=== PATIENT | male | born 1950 | race African-American/Black ===

== ENCOUNTER 2016-08-28 13:28 | Emergency (ER) | payer MEDICARE, OTHER ==
[2016-08-28] MEDS ORDERED: SODIUM CHLORIDE 0.9% 1,000 ML IV STA ×2 (13:57)
[2016-08-28 14:33] LABS: Aty Lym Flag Slight; CH 30.6; CHCM 32.2; HCT 46.6 % (39.0-53.0); HDW 2.29; HGB 14.7 gm/dL (13.0-17.5); MCH 30.1 pg (25.0-35.0); MCHC 31.5 g/dL (31.0-37.0); MCV 95.5 fL (80.0-100.0); Mean Platelet Volume 7.1; RBC 4.87 m/uL (4.30-5.90); RDW 13.7 % (11.5-15.5); WBC (Perox) 3.14
[2016-08-28 14:37] LABS: Partial Thromboplastin Time 26.4 sec (22.0-30.0); Prothrombin Time 10.2 sec (9.0-12.0)
[2016-08-28 14:39] LABS: Appearance,Urine Clear (Clear); Bilirubin,Urine Negative (Negative); Glucose,Urine (UA) Negative (Negative); Ketones,Urine Negative (Negative); Leukocyte Esterase,Urine Moderate (Negative); Mucus,Urine Rare /hpf; Nitrite,Urine Negative (Negative); Particle Count 2236; Protein,Urine Trace (Negative); Specific Gravity,Urine 1.022 (1.001-1.035); UA Billing (MACRO vs. MICRO) MICRO; WBC,Urine 15 /hpf (0-5)
[2016-08-28 14:42] LABS: Add Differential Manual Differential
[2016-08-28 14:43] LABS: ALT 37 U/L (21-72); AST 45 U/L (17-59); Alkaline Phosphatase 115 U/L (38-126); Anion Gap 9 mmol/L; Blood Urea Nitrogen 13 mg/dL (9-20); Calcium 9.1 mg/dL (8.4-10.2); Carbon Dioxide 28 mmol/L (22-30); Chloride 104 mmol/L (98-107); Glucose 88 mg/dL (74-99); Magnesium 2.2 mg/dL (1.6-2.3); Non-African American GFR(MDRD) >60 (>60 ml/min/1.73 sqM); Phosphorous 4.1 mg/dL (2.5-4.5); Potassium 4.7 mmol/L (3.5-5.1); Sodium 141 mmol/L (137-145); Total Bilirubin 0.6 mg/dL (0.2-1.3); Total Protein 7.6 g/dL (6.3-8.2)
[2016-08-28 14:49] LABS: Creatine Kinase 221 U/L (55-170)
[2016-08-28 14:51] LABS: Nucleated Red Blood Cells 0 /100 WBC (0-0); Total Cells Counted 100
[2016-08-28 14:52] LABS: Manual Review Performed
[2016-08-28 15:03] LABS: Creatine Kinase MB 1.7 ng/mL (0.0-2.4); Troponin I <0.012 ng/mL (0.000-0.034)
--- NOTE | 2016-08-28 15:18 | ED ---
General Adult HPI - General Chief complaint: Recheck/Abnormal Lab/Rx Stated complaint: Sent by PCP for Kidney Failure Time Seen by Provider: 08/28/16 13:57 Source: patient, RN notes reviewed, old records reviewed Mode of arrival: ambulatory Limitations: no limitations - History of Present Illness Initial comments: This is a 66-year-old male here for evaluation of abnormal lab tests. Patient has history of high blood pressure. Patient had outpatient lab test done at his family doctor's and was told to come in for evaluation regarding abnormal outpatient lab test, he was told that his kidneys may be failing. Patient self has no complaints again denies any weakness no nausea no vomiting no diarrhea no fevers. No new medications, no change in medications. Again patient at this time is without complaint - Related Data Home Medications Medication Instructions Recorded Confirmed ARIPiprazole [Abilify] 30 mg PO HS 08/28/16 08/28/16 Amitriptyline HCl [Elavil] 100 mg PO HS 08/28/16 08/28/16 Carvedilol [Coreg] 3.125 mg PO BID 08/28/16 08/28/16 Gabapentin [Neurontin] 300 mg PO TID 08/28/16 08/28/16 Lisinopril [Zestril] 20 mg PO DAILY 08/28/16 08/28/16 Meloxicam [Mobic] 15 mg PO HS 08/28/16 08/28/16 buPROPion XL [Wellbutrin Xl] 300 mg PO DAILY 08/28/16 08/28/16 traZODone HCL [Desyrel] 100 mg PO HS 08/28/16 08/28/16 Allergies Allergy/AdvReac Type Severity Reaction Status Date / Time Penicillins Allergy Rash/Hives Verified 08/28/16 14:22 Review of Systems ROS Statement: Those systems with pertinent positive or pertinent negative responses have been documented in the HPI. ROS Other: All systems not noted in ROS Statement are negative. Past Medical History Past Medical History: Hypertension History of Any Multi-Drug Resistant Organisms: None Reported Past Surgical History: Orthopedic Surgery Past Psychological History: Bipolar, Depression Smoking Status: Current every day smoker Past Alcohol Use History: Occasional Past Drug Use History: None Reported General Exam Limitations: no limitations General appearance: alert, in no apparent distress Head exam: Present: atraumatic, normocephalic, normal inspection Eye exam: Present: normal appearance, PERRL, EOMI. Absent: scleral icterus, conjunctival injection, periorbital swelling ENT exam: Present: normal exam, mucous membranes moist Neck exam: Present: normal inspection. Absent: tenderness, meningismus, lymphadenopathy Respiratory exam: Present: normal lung sounds bilaterally. Absent: respiratory distress, wheezes, rales, rhonchi, stridor Cardiovascular Exam: Present: regular rate, normal rhythm, normal heart sounds. Absent: systolic murmur, diastolic murmur, rubs, gallop, clicks GI/Abdominal exam: Present: soft, normal bowel sounds. Absent: distended, tenderness, guarding, rebound, rigid Extremities exam: Present: normal inspection, full ROM, normal capillary refill. Absent: tenderness, pedal edema, joint swelling, calf tenderness Back exam: Present: normal inspection Neurological exam: Present: alert, oriented X3, CN II-XII intact Psychiatric exam: Present: normal affect, normal mood Skin exam: Present: warm, dry, intact, normal color. Absent: rash Course Vital Signs 08/28/16 13:39 Temperature 98.4 F Pulse Rate 84 Respiratory 20 Rate Blood Pressure 129/83 O2 Sat by Pulse 97 Oximetry - Reevaluation(s) Reevaluation #1: 08/28/16 15:17 Patient has no medical complaints Medical Decision Making - Medical Decision Making 66 male to the ER for evaluation regarding abnormal lab tests, lab tests today are grossly normal, renal function is normal patient is asymptomatic and will be discharged home - Lab Data Result diagrams: 08/28/16 14:16 08/28/16 14:16 Lab Results 08/28/16 08/28/16 08/28/16 Range/Units 14:16 14:16 14:16 WBC 3.0 L (3.8-10.6) k/uL RBC 4.87 (4.30-5.90) m/uL Hgb 14.7 (13.0-17.5) gm/dL Hct 46.6 (39.0-53.0) % MCV 95.5 (80.0-100.0) fL MCH 30.1 (25.0-35.0) pg MCHC 31.5 (31.0-37.0) g/dL RDW 13.7 (11.5-15.5) % Plt Count 193 (150-450) k/uL Neutrophils % [employer] Neutrophils % (Manual) 44.0 % Lymphocytes % [employer] Lymphocytes % (Manual) 36.0 % Monocytes % [employer] Monocytes % (Manual) 20.0 % Eosinophils % [employer] Basophils % [employer] Neutrophils # [employer] Neutrophils # (Manual) 1.3 (1.3-7.7) k/uL Lymphocytes # [employer] Lymphocytes # (Manual) 1.1 (1.0-4.8) k/uL Monocytes # [employer] Monocytes # (Manual) 0.6 (0-1.0) k/uL Eosinophils # [employer] Basophils # [employer] Nucleated RBCs 0 (0-0) /100 WBC Differential Comment P Manual Slide Review Performed PT (9.0-12.0) sec INR (<1.1) APTT (22.0-30.0) sec Sodium 141 (137-145) mmol/L Potassium 4.7 (3.5-5.1) mmol/L Chloride 104 (98-107) mmol/L Carbon Dioxide 28 (22-30) mmol/L Anion Gap 9 mmol/L BUN 13 (9-20) mg/dL Creatinine 0.99 (0.66-1.25) mg/dL Est GFR (MDRD) Af Amer >60 (>60 ml/min/1.73 sqM) Est GFR (MDRD) Non-Af >60 (>60 ml/min/1.73 sqM) Glucose 88 (74-99) mg/dL Calcium 9.1 (8.4-10.2) mg/dL Phosphorus 4.1 (2.5-4.5) mg/dL Magnesium 2.2 (1.6-2.3) mg/dL Total Bilirubin 0.6 (0.2-1.3) mg/dL AST 45 (17-59) U/L ALT 37 (21-72) U/L Alkaline Phosphatase 115 (38-126) U/L Total Creatine Kinase 221 H (55-170) U/L CK-MB (CK-2) 1.7 (0.0-2.4) ng/mL CK-MB (CK-2) Rel Index 0.8 Troponin I <0.012 (0.000-0.034) ng/mL Total Protein 7.6 (6.3-8.2) g/dL Albumin 4.3 (3.5-5.0) g/dL Urine Color Urine Appearance (Clear) Urine pH (5.0-8.0) Ur Specific [place] (1.001-1.035) Urine Protein (Negative) Urine Glucose (UA) (Negative) Urine Ketones (Negative) Urine Blood (Negative) Urine Nitrite (Negative) Urine Bilirubin (Negative) Urine Urobilinogen (<2.0) mg/dL Ur Leukocyte Esterase (Negative) Urine WBC (0-5) /hpf Urine Mucus (None) /hpf 08/28/16 08/28/16 Range/Units 14:16 14:16 WBC (3.8-10.6) k/uL RBC (4.30-5.90) m/uL Hgb (13.0-17.5) gm/dL Hct (39.0-53.0) % MCV (80.0-100.0) fL MCH (25.0-35.0) pg MCHC (31.0-37.0) g/dL RDW (11.5-15.5) % Plt Count (150-450) k/uL Neutrophils % Neutrophils % (Manual) % Lymphocytes % Lymphocytes % (Manual) % Monocytes % Monocytes % (Manual) % Eosinophils % Basophils % Neutrophils # Neutrophils # (Manual) (1.3-7.7) k/uL Lymphocytes # Lymphocytes # (Manual) (1.0-4.8) k/uL Monocytes # Monocytes # (Manual) (0-1.0) k/uL Eosinophils # Basophils # Nucleated RBCs (0-0) /100 WBC Differential Comment Manual Slide Review PT 10.2 (9.0-12.0) sec INR 1.0 (<1.1) APTT 26.4 (22.0-30.0) sec Sodium (137-145) mmol/L Potassium (3.5-5.1) mmol/L Chloride (98-107) mmol/L Carbon Dioxide (22-30) mmol/L Anion Gap mmol/L BUN (9-20) mg/dL Creatinine (0.66-1.25) mg/dL Est GFR (MDRD) Af Amer (>60 ml/min/1.73 sqM) Est GFR (MDRD) Non-Af (>60 ml/min/1.73 sqM) Glucose (74-99) mg/dL Calcium (8.4-10.2) mg/dL Phosphorus (2.5-4.5) mg/dL Magnesium (1.6-2.3) mg/dL Total Bilirubin (0.2-1.3) mg/dL AST (17-59) U/L ALT (21-72) U/L Alkaline Phosphatase (38-126) U/L Total Creatine Kinase (55-170) U/L CK-MB (CK-2) (0.0-2.4) ng/mL CK-MB (CK-2) Rel Index Troponin I (0.000-0.034) ng/mL Total Protein (6.3-8.2) g/dL Albumin (3.5-5.0) g/dL Urine Color Yellow Urine Appearance Clear (Clear) Urine pH 6.0 (5.0-8.0) Ur Specific [place] 1.022 (1.001-1.035) Urine Protein Trace H (Negative) Urine Glucose (UA) Negative (Negative) Urine Ketones Negative (Negative) Urine Blood Negative (Negative) Urine Nitrite Negative (Negative) Urine Bilirubin Negative (Negative) Urine Urobilinogen 6.0 (<2.0) mg/dL Ur Leukocyte Esterase Moderate H (Negative) Urine WBC 15 H (0-5) /hpf Urine Mucus Rare H (None) /hpf Disposition Clinical Impression: Normal exam Narrative: Normal Lab Values Disposition: HOME SELF-CARE Condition: Good Referrals: Angy Roque MD [Primary Care Provider] - 1-2 days
[2016-08-28 15:29] VITALS: BP 119/74; PULSE 89; RESP 16; TEMP 97.3
[2016-08-28 18:13] LABS: Hemoglobin A1C 5.6 % (4.2-6.1)
== END 2016-08-28 15:33 | disposition home or self-care (01) ==
LOC: EC 13:28
DX: Z04.8 Encounter for examination and observation for other specified reasons (principal); I10 Essential (primary) hypertension; F31.9 Bipolar disorder, unspecified; F17.200 Nicotine dependence, unspecified, uncomplicated; Z79.899 Other long term (current) drug therapy; Z88.0 Allergy status to penicillin
CPT/HCPCS: 36415; 80053; 81001; 82550; 82553; 82607; 83036; 83735; 84100; 84484; 85025; 85610; 85730; 96360; 99283

== ENCOUNTER → 2016-09-07 | Outpatient (CLI) | payer MEDICARE, OTHER ==
--- NOTE | 2016-09-07 12:06 | CT ---
EXAMINATION TYPE: CT chest wo con DATE OF EXAM: 09/07/2016 11:56 AM COMPARISON: NONE HISTORY: Abn kidney function. Abn CXR CT DLP: 590 mGycm Automated exposure control for dose reduction was used. FINDINGS: There are emphysematous changes throughout the lungs. There is a 5.1 mm, noncalcified pulmonary nodul e along the major fissure on the right best seen on image 51. There is a 5.4 mm nodule in the posteri or segment of the right upper lobe, best seen on image 20. There is a 5.8 mm calcified granuloma in t he lateral aspect of the left lung seen best on image 55. There is an 8.2 mm noncalcified nodule in t he lateral basal segment of the left lower lobe, best seen on image 61. No other definite parenchymal nodules are seen. There is no significant axillary, mediastinal or hilar adenopathy. There are some calcified lymph nod es present in the left hilum. There is no pleural or pericardial fluid. The heart is normal in size. The aorta is normal in size. Within the abdomen, there is evidence of old granulomatous disease of the spleen. No other acute abno rmality is seen. No bony destructive lesion is seen. IMPRESSION: 1. MULTIPLE PULMONARY NODULES. AT LEAST ONE OF THESE REPRESENTS A GRANULOMA. SHORT-TERM THREE-MONTH F OLLOW-UP WOULD BE SUGGESTED. 2. EVIDENCE OF OLD GRANULOMATOUS DISEASE IN THE SPLEEN. 3. EMPHYSEMATOUS CHANGE.
[2016-09-07 12:07] LABS: Glucose 92 mg/dL (74-99)
--- NOTE | 2016-09-07 12:17 | US ---
EXAMINATION TYPE: US kidneys/renal and bladder DATE OF EXAM: 09/07/2016 11:55 AM COMPARISON: NONE CLINICAL HISTORY: R94.4 Abn Kidney Function,R93.8 Abn Chest Xray. Back pain, abnormal kidney function EXAM MEASUREMENTS: Right Kidney: 9.6 x 6.7 x 5.7 cm Left Kidney: 11.2 x 5.3 x 4.3 cm Technical limitations due to large amount of overlying bowel content Right Kidney: no evidence of hydronephrosis or mass as visualized Left Kidney: no evidence of hydronephrosis or mass as visualized Bladder: wnl Bilateral Jets seen: no IMPRESSION: Limited exam technically demonstrates no obvious hydronephrosis or nephrolithiasis.
[2016-09-07 12:46] LABS: Hemoglobin A1C 5.7 % (4.2-6.1)
[2016-09-07 12:56] LABS: Vitamin B12 225 pg/mL (239-931)
== END | disposition home or self-care (01) ==
LOC: RADUSMAIN 11:16
PROVIDERS: ATTEND Family Medicine
DX: R91.8 Other nonspecific abnormal finding of lung field (principal); R94.4 Abnormal results of kidney function studies; M54.16 Radiculopathy, lumbar region; G62.9 Polyneuropathy, unspecified
CPT/HCPCS: 71250; 76770; 82607; 82947; 83036

== ENCOUNTER → 2016-12-20 | Outpatient (CLI) | payer MEDICARE, OTHER ==
[2016-12-20 11:22] LABS: Glucose 99 mg/dL (74-99)
[2016-12-20 12:13] LABS: Vitamin B12 202 pg/mL (239-931)
[2016-12-20 12:59] LABS: Hemoglobin A1C 5.7 % (4.2-6.1)
== END | disposition home or self-care (01) ==
LOC: LABWHC1 08:51
PROVIDERS: ATTEND Psychiatry & Neurology Neurology
DX: G62.9 Polyneuropathy, unspecified (principal); M54.16 Radiculopathy, lumbar region
CPT/HCPCS: 36415; 82607; 82947; 83036

== ENCOUNTER → 2017-01-02 | Outpatient (CLI) | payer MEDICARE, OTHER ==
--- NOTE | 2017-01-02 12:55 | MR ---
EXAMINATION TYPE: MR lumbar spine wo con DATE OF EXAM: 01/02/2017 COMPARISON: NONE HISTORY: Lumbago w/sciatica rt TECHNIQUE: Multiplanar, multisequence images of the lumbar spine were acquired. L1-L2: Normal disc appearance without desiccation. No herniation, protrusion or disc bulging. No ca nal stenosis is present. Foramina are patent bilaterally. L2-L3: Normal disc appearance without desiccation. No herniation, protrusion or disc bulging. No ca nal stenosis is present. There is some facet arthropathy. Foramina are patent bilaterally. L3-L4: Circumferential posterior disc bulge causes mild anterior mass effect on the thecal sac, mild central stenosis. Differential extension of endplate disc complex results in some mild bilateral fora carrie encroachment. There is facet arthropathy with hypertrophy of ligamentum flavum. L4-L5: Facet arthropathy changes present. Circumferential extension of endplate disc complex encroach es on the neural foramina and causes mild anterior mass effect on the thecal sac. There is mild centr al stenosis. L5-S1: Circumferential extension of endplate disc complex results in bilateral foraminal encroachment , there is contact the anterior thecal sac and possibly S1 nerve roots. Facet arthropathy with hypert rophy of ligamentum flavum causes some minimal mass effect posterior laterally on the thecal sac. Lumbar segments are intact. No paraspinal masses are identified. Conus medullaris has a normal appe arance. Loss of disc height and signal present especially at L4-5 and L5-S1, vacuum phenomenon presen t at L4-5, L5-S1. Endplate discogenic marrow signal changes are also present. There is associated spo ndylosis. Schmorl's node present superior endplate L5, inferior endplate of L4. Abdominal aorta measu res approximately 3 cm at the level of the hiatus. IMPRESSION: Degenerative disc disease, multilevel foraminal encroachment, facet arthropathy. Abdominal aortic ect zach.
== END | disposition home or self-care (01) ==
LOC: RADMRIMAIN 09:04
PROVIDERS: ATTEND Family Medicine
DX: M51.36 Other intervertebral disc degeneration, lumbar region (principal); M46.97 Unspecified inflammatory spondylopathy, lumbosacral region; M24.28 Disorder of ligament, vertebrae
CPT/HCPCS: 72148

== ENCOUNTER → 2017-02-01 | Outpatient (CLI) | payer MEDICARE, OTHER ==
--- NOTE | 2017-02-06 12:29 | P.ARTDOP ---
Arterial Doppler LOWER EXTREMITY ARTERIAL DOPPLER: DATE OF SERVICE: 02/01/2017 Reason for study: Bilateral leg cramps. Doppler waveforms: Multiphasic bilaterally throughout. Pulse volume recording: Normal configuration throughout. Pressure gradients: None. Ankle-brachial indices: Greater than 1 bilaterally. Toe pressures: 107 on the right, 114 on the left Impression: Normal study.
== END | disposition home or self-care (01) ==
LOC: RADUSWWP 11:34
PROVIDERS: ATTEND Family Medicine
DX: R25.2 Cramp and spasm (principal); M79.662 Pain in left lower leg; M79.661 Pain in right lower leg
CPT/HCPCS: 93923

== ENCOUNTER → 2017-02-04 | Outpatient (CLI) | payer MEDICARE, OTHER ==
[2017-01-30 15:11] VITALS: BMI 25.7
[2017-02-04 13:45] VITALS: BP 127/72; PULSE 84; RESP 16
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
== END | disposition home or self-care (01) ==
LOC: PNWHC3 13:28
PROVIDERS: ATTEND Specialist
DX: M51.36 Other intervertebral disc degeneration, lumbar region (principal); M47.816 Spondylosis without myelopathy or radiculopathy, lumbar region; M46.86 Other specified inflammatory spondylopathies, lumbar region; F17.200 Nicotine dependence, unspecified, uncomplicated; I10 Essential (primary) hypertension; K21.9 Gastro-esophageal reflux disease without esophagitis; Z79.02 Long term (current) use of antithrombotics/antiplatelets; Z79.899 Other long term (current) drug therapy; Z88.0 Allergy status to penicillin
CPT/HCPCS: 99211

== ENCOUNTER 2017-02-27 08:20 | Day surgery (SDC) | payer MEDICARE, OTHER ==
[2017-02-27] MEDS ORDERED: LACTATED RINGERS 1,000 ML IV SCH (08:30)
[2017-02-27 09:01] VITALS: RESP 16; TEMP 98
[2017-02-27] MEDS ORDERED: LIDOCAINE 1% 20 ML VIAL (10MG/ML) FOR IV START INTRADERMA ONE (09:03)
[2017-02-27] MEDS ORDERED: IV FLUID CONTINUATION 1,000 ML IV ONE (10:16)
[2017-02-27 10:33] VITALS: BP 136/80; PULSE 76
--- NOTE | 2017-02-27 10:35 | FL ---
EXAMINATION TYPE: FL guided pain mgmt statistic DATE OF EXAM: 02/27/2017 HISTORY: Pain Dr. Sorensen supervised use of michael for a lumbar megan facet block with steroids. 14 secs fluoro and 5 pap er images
--- NOTE | 2017-02-27 11:42 | P.PCN ---
Date of Procedure: 02/27/17 Surgeon: Camron Sorensen Pathology: none sent Condition: stable Disposition: PACU Description of Procedure: PREOPERATIVE DIAGNOSIS: L2-L3, L3-L4, L4-L5, and L5-S1 spondylosis without myelopathy and facet arthropathy. POSTOPERATIVE DIAGNOSIS: L2-L3, L3-L4, L4-L5, and L5-S1 spondylosis without myelopathy and facet arthropathy. PROCEDURE DESCRIPTION: Patient presents for L2-L3, L3-L4, L4-L5 diagnostic medial branch blocks under fluoroscopic guidance. The procedure is performed using fluoroscopic guidance during needle placement to assure proper position and maximize safety. ANESTHESIA: Local with 1% lidocaine; conscious sedation EBL: Minimal PROCEDURE INDICATION: Patient with lumbar facet arthropathy signs and symptoms, here for diagnostic medial branch block. Pt does not take any blood thinning medications. PROCEDURE DESCRIPTION: The patient was seen and identified in the preoperative area. Risks, benefits, complications, and alternatives were discussed with the patient (including but not limited to incomplete pain relief, bleeding, infection, nerve damage, and allergies to medications), the patient agreed to proceed with the procedure and signed the consent after all questions were answered. Patient was taken to the OR and time out was completed to verify proper patient, position, laterality of pain, and allergies. Pt was placed in the prone position and a pillow was placed under the abdomen to reduce lumbar lordosis. The lumbosacral area was prepped and draped in the usual sterile fashion. Using oblique fluoroscopy, the eye of the "Rkish dog" of right L4 vertebral body, which corresponds to the path of the medial branch originating from the level above, which is L3 in this case, was identified. Subsequently, a 22-gauge 3.5-inch spinal needle was inserted under fluoroscopic guidance toward the eye of the "Krish dog" of the right L4 vertebral body, corresponding to the junction of the superior articular process and the transverse process of the pedicle of the same level. After needle tip confirmation on lateral view and after negative aspiration for CSF and blood and without paresthesias, 1 mL of a 6 ml solution of 0.5% preservative-free bupivacaine and 40 mg Kenalog was injected. Subsequently the needle was withdrawn intact and the same procedure was repeated for the right L2, right L4, left L2, left L3, and left L4 medial branches which together with right L3 medial branch correspond to the sensory innervation of the bilateral L3-L4, L4-L5, and L5-S1 facet joints. Needle was withdrawn intact after each injection. At the end of the procedure, the skin was cleansed and bandages were applied. COMPLICATIONS: None. DISPOSITION/PLAN: The patient taken to the recovery area after the procedure in a stable condition for observation. Patient was reexamined prior to discharge and there were no issues. Patient was discharged home, accompanied by an adult, after meeting discharged criteria. Discharge instructions were give to the patient by the staff. Patient was specifically instructed not to drive today and to rest for the rest of the day. We will plan to repeat this procedure (bilateral LMBB ) in 4-6 weeks.
== END 2017-02-27 13:37 | disposition home or self-care (01) ==
LOC: ORPAIN 08:20
PROVIDERS: ATTEND Anesthesiology
DX: G89.29 Other chronic pain (principal); M47.816 Spondylosis without myelopathy or radiculopathy, lumbar region; M47.817 Spondylosis without myelopathy or radiculopathy, lumbosacral region; M46.96 Unspecified inflammatory spondylopathy, lumbar region; M46.97 Unspecified inflammatory spondylopathy, lumbosacral region; I10 Essential (primary) hypertension; M19.90 Unspecified osteoarthritis, unspecified site; F17.200 Nicotine dependence, unspecified, uncomplicated; Z79.899 Other long term (current) drug therapy; Z88.0 Allergy status to penicillin
CPT/HCPCS: 64493; 64494; 64495; 99152; J2250; J3301

== ENCOUNTER → 2017-03-05 | Outpatient (CLI) | payer MEDICARE, OTHER ==
--- NOTE | 2017-03-05 11:24 | US ---
EXAMINATION TYPE: US duplex aorta DATE OF EXAM: 03/05/2017 COMPARISON: MRI CLINICAL HISTORY: I77.811 Aortic Ectasia Abdominal. EXAM MEASUREMENTS: Abdominal Aorta: Proximal: 2.8 x 3.2 cm Mid: 1.9 x 1.8 cm Distal: 1.7 x 1.6 cm Bifurcation: right 1.5 cm left 1.4 cm Ectatic proximal aorta IMPRESSION: There is some mild ectasia. Aneurysmal dilatation is not evident. No significant fusiform prominence is present.
== END | disposition home or self-care (01) ==
LOC: RADUSWWP 08:27
PROVIDERS: ATTEND Family Medicine
DX: I77.811 Abdominal aortic ectasia (principal)
CPT/HCPCS: 93979

== ENCOUNTER 2017-04-15 06:07 | Day surgery (SDC) | payer MEDICARE, OTHER ==
[2017-04-09 15:44] VITALS: BMI 25.7
[~2017-04-15 06:07] MED LIST: LACTATED RINGERS 1,000 ML IV SCH
[2017-04-15] MEDS ORDERED: LIDOCAINE 1% 20 ML VIAL (10MG/ML) FOR IV START INTRADERMA ONE (06:30)
[2017-04-15 06:40] VITALS: RESP 16; TEMP 98.4
--- NOTE | 2017-04-15 08:02 | P.PCN ---
Date of Procedure: 04/15/17 Procedure(s) Performed: PREOPERATIVE DIAGNOSIS: 1-Lumbar Spondylosis with Facet Arthropathy without myelopathy. 2- Lumber degenerative disc disease. POSTOPERATIVE DIAGNOSIS: 1- Lumbar Spondylosis with Facet Arthropathy without myelopathy. 2- Lumber degenerative disc disease. PROCEDURES : Right Radiofrequency thermocoagulation, L3-L4, L4-L5, and L5-S1 medial branch, with fluoroscopic guidance ANESTHESIA: IV sedation with versed 2 mg and fentaneyl 100 mcg and local infiltration with lidocaine 1% 6 ml EBL: Minimal PROCEDURE INDICATION: The patient with low back pain secondary to lumbar facet arthropathy who had more than 50% relief of her pain with previous diagnostic lumbar medial branch block with bupivacaine. PROCEDURE DESCRIPTION / TECHNIQUE: The patient was seen and identified in the preoperative area. Risks, benefits, complications, including but not limited to risk of infection ,bleeding , allergic reactions to the medications and no complete pain releife , and alternatives were discussed with the patient, the patient agreed to proceed with the procedure and signed the consent. IV was started. Vital signs remained stable throughout the procedure. Patient was taken to the OR and time out was completed. The patient was placed in the prone position on the procedure table. The lumber area was prepped and draped in the usual sterile fashion. . Vital signs were closely monitored during the procedure .IV sedation was used during the procedure to decrease patients anxiety. Using AP and then oblique fluoroscopy, the ``eye of the Krish dog corresponding to the connection between the superior and transverse articular processes of right L3, L4, and L5 were identified, marked, and localized with 1 % lidocaine. Subsequently, a 18 nilwe256-bl radiofrequency cannula with a 10- mm active tip was advanced guided by fluoroscopy to each of the ``eyes of the Krish dog at right L3, L4, and L5. Each site then underwent sensory testing at 50 Hz and 0 to 1 volt and motor testing at 2.5 Hz and 0 to 3 volt with local stimulation, but no radicular symptoms down the legs. Thereafter the right L3-4, L4-5, and L5-S1 sites underwent radiofrequency thermocoagulation at 80 degrees celsius for 90 seconds after injecting 0.5 ml of PF lidocaine 1%. then After the thermocoagulation done , 1 ml of the block solution containing Kenalog 40 mg and 3 ml of marain 0.5% was injected at the right L3- 4 , L4-5 , and L5-S1, levels after negative aspiration of CSF and blood and with no paresthesias. Cannulas were retracted while injecting lidocaine 1% until the needle is out. At the end of the procedure, the skin was cleansed and bandages were applied. COMPLICATIONS: No acute complications. DISPOSITION / PLANS: The patient was placed in a supine position and transferred to the recovery area in a stable condition for observation and was discharged from the recovery room after meeting discharge criteria. Home discharge instructions given to the patient by the staff. The patient was reexamined prior to discharge. The patient will schedule a follow up in the clinic in 2-4 weeks.
[2017-04-15] MEDS ORDERED: IV FLUID CONTINUATION 1,000 ML IV ONE (08:10)
[2017-04-15 08:31] VITALS: BP 158/99; PULSE 95
--- NOTE | 2017-04-15 09:03 | FL ---
EXAMINATION TYPE: FL guided pain mgmt statistic DATE OF EXAM: 04/15/2017 COMPARISON: NONE HISTORY: Back pain TECHNIQUE: Fluoroscopy. FINDINGS/IMPRESSION: Fluoroscopic guidance was provided during procedure performed by Dr. Rascon. A total of 11 seconds of fluoroscopic time was utilized during the procedure and 3 spot images was a cquired.
== END 2017-04-15 08:59 | disposition home or self-care (01) ==
LOC: ORPAIN 06:07
PROVIDERS: ATTEND Specialist
DX: M47.816 Spondylosis without myelopathy or radiculopathy, lumbar region (principal); M46.96 Unspecified inflammatory spondylopathy, lumbar region; M51.36 Other intervertebral disc degeneration, lumbar region; I10 Essential (primary) hypertension; F31.9 Bipolar disorder, unspecified; F32.9 Major depressive disorder, single episode, unspecified; Z88.0 Allergy status to penicillin
CPT/HCPCS: 64635; 64636 ×2; J2250; J3301; J3010; 99152; 99153

== ENCOUNTER → 2017-05-29 | Outpatient (CLI) | payer MEDICARE, OTHER ==
--- NOTE | 2017-05-29 13:58 | CT ---
EXAMINATION TYPE: CT chest wo con DATE OF EXAM: 05/29/2017 COMPARISON: 09/07/2016 HISTORY: 67-year-old male complains of difficulty breathing. Known lung nodules. TECHNIQUE: Contiguous axial scanning of the chest without IV contrast. Coronal and sagittal reconstru ctions performed. CT DLP: 296 mGycm Automated exposure control for dose reduction was used. FINDINGS: Heart is normal size without pericardial effusion. Coronary vessel calcifications are present and are a marker for coronary artery disease. There is aneurysm of the upper descending thoracic aorta at 3.5 cm. The lower descending thoracic aor ta is also aneurysmal at 3.1 cm. Mild atherosclerotic arch calcifications with conventional arch vess el branching anatomy. No thoracic lymphadenopathy. Calcified left hilar lymph nodes compatible with prior granulomatous dis ease. Evaluation of the lungs shows moderate centrilobular emphysema. 5 mm pulmonary nodule peripheral right lower lobe at the midlung level, axial image 38 is unchanged. An elongated 8 mm pulmonary nodule right middle lobe axial image 43 is unchanged. 7 mm subpleural pulmonary nodule anterolateral lateral right base axial image 48 is unchanged. 5 mm subpleural pulmonary nodule lateral right base and 4 mm subpleural pulmonary nodule posterolater al right base, axial image 52 and 54 are unchanged. 6 mm left basilar pulmonary nodule axial image 59 is unchanged. 5 mm peripheral left basilar pulmonary nodule some central calcification suggesting a calcifying gran uloma and is unchanged. Some minimal scarring at the inferior lingula redemonstrated. Additional strandy scarring at the peripheral left base, axial image 47 is unchanged. A couple tiny 3 mm pulmonary nodules along the major fissure at the left midlung, axial image 42 and 43 are unchanged. 4 mm pulmonary nodule along the major fissure at the left mid lung axial image 35 is unchanged. 4 mm subpleural pulmonary nodule peripheral left mid lung axial image 33 is unchanged. No consolidation or pleural effusion. Calcified granulomas noted within the spleen. Moderate stool within the visualized upper abdomen. Bones: Some degenerative disc disease noted at T2-T3. No osseous destructive process. IMPRESSION: 1. MULTIPLE PULMONARY NODULES MEASURING UP TO 7 MM ARE UNCHANGED FOR 9 MONTHS. ADDITIONAL 15 MONTH FO LLOW-UP EXAM RECOMMENDED TO ENSURE 2 YEARS OF STABILITY. 2. COPD WITH MODERATE EMPHYSEMA AND PRIOR GRANULOMATOUS DISEASE. 3. MILD ANEURYSM OF THE DESCENDING THORACIC AORTA MEASURING UP TO 3.5 CM.
== END | disposition home or self-care (01) ==
LOC: RADCTMAIN 12:38
PROVIDERS: ATTEND Family Medicine
DX: J43.9 Emphysema, unspecified (principal); R91.8 Other nonspecific abnormal finding of lung field; J98.4 Other disorders of lung; I71.2 Thoracic aortic aneurysm, without rupture
CPT/HCPCS: 71250

== ENCOUNTER → 2017-07-11 | Outpatient (CLI) | payer MEDICARE, OTHER ==
[2017-07-11 12:30] LABS: HCT 47.9 % (39.0-53.0); HGB 15.1 gm/dL (13.0-17.5); MCH 30.7 pg (25.0-35.0); MCHC 31.6 g/dL (31.0-37.0); MCV 97.3 fL (80.0-100.0); Mean Platelet Volume 7.1; Platelet Count 218 k/uL (150-450); RBC 4.93 m/uL (4.30-5.90); RDW 14.1 % (11.5-15.5); WBC 3.7 k/uL (3.8-10.6)
[2017-07-11 12:32] LABS: Appearance,Urine Clear (Clear); Bilirubin,Urine Negative (Negative); Blood,Urine Negative (Negative); Color,Urine Yellow; Glucose,Urine (UA) 2+ (Negative); Ketones,Urine Negative (Negative); Leukocyte Esterase,Urine Negative (Negative); Nitrite,Urine Negative (Negative); PH, Urine 5.5 (5.0-8.0); Protein,Urine Trace (Negative); Specific Gravity,Urine 1.018 (1.001-1.035)
[2017-07-11 12:42] LABS: ALT 20 U/L (21-72); AST 21 U/L (17-59); Albumin 4.1 g/dL (3.5-5.0); Alkaline Phosphatase 118 U/L (38-126); Anion Gap 10 mmol/L; Blood Urea Nitrogen 8 mg/dL (9-20); Calcium 9.6 mg/dL (8.4-10.2); Carbon Dioxide 29 mmol/L (22-30); Chloride 105 mmol/L (98-107); Glucose 91 mg/dL (74-99); Magnesium 2.1 mg/dL (1.6-2.3); Phosphorus 3.2 mg/dL (2.5-4.5); Potassium 3.7 mmol/L (3.5-5.1); Sodium 144 mmol/L (137-145); Total Bilirubin 0.3 mg/dL (0.2-1.3); Total Protein 7.1 g/dL (6.3-8.2); Uric Acid 5.1 mg/dL (3.5-8.5)
[2017-07-11 12:43] LABS: Creatinine,Urine Random 239.1 mg/dL
[2017-07-11 18:27] LABS: Iron Saturation 11.78 (15.00-50.00)
[2017-07-11 18:55] LABS: Vitamin D 25 Hydroxy 15.1 ng/mL (30.0-100.0)
[2017-07-11 19:59] LABS: Parathyroid Hormone Intact 12.7 pg/mL (14.0-72.0)
== END | disposition home or self-care (01) ==
LOC: LABWHC1 12:09
PROVIDERS: ATTEND Internal Medicine
DX: N39.0 Urinary tract infection, site not specified (principal); D63.1 Anemia in chronic kidney disease; N18.9 Chronic kidney disease, unspecified; E21.3 Hyperparathyroidism, unspecified; E55.9 Vitamin D deficiency, unspecified; M10.9 Gout, unspecified; R80.9 Proteinuria, unspecified
CPT/HCPCS: 36415; 80053; 81003; 82306; 82570; 82728; 83540; 83550; 83735; 83970; 84100; 84156; 84550; 85027

== ENCOUNTER → 2017-08-21 | Outpatient (CLI) | payer MEDICARE, OTHER ==
[2017-08-21 13:27] LABS: Appearance,Urine Clear (Clear); Bilirubin,Urine Negative (Negative); Blood,Urine Negative (Negative); Color,Urine Yellow; Glucose,Urine (UA) Negative (Negative); Ketones,Urine Negative (Negative); Leukocyte Esterase,Urine Negative (Negative); Nitrite,Urine Negative (Negative); Protein,Urine Negative (Negative); Specific Gravity,Urine 1.011 (1.001-1.035); Urobilinogen,Urine <2.0 mg/dL (<2.0)
[2017-08-21 13:28] LABS: HCT 43.8 % (39.0-53.0); HGB 13.8 gm/dL (13.0-17.5); MCH 29.7 pg (25.0-35.0); MCHC 31.4 g/dL (31.0-37.0); MCV 94.4 fL (80.0-100.0); Mean Platelet Volume 7.4; Platelet Count 188 k/uL (150-450); RBC 4.64 m/uL (4.30-5.90); WBC 3.9 k/uL (3.8-10.6)
[2017-08-21 13:44] LABS: Albumin 3.8 g/dL (3.5-5.0); Calcium 9.3 mg/dL (8.4-10.2); Magnesium 2.1 mg/dL (1.6-2.3); Phosphorus 4.6 mg/dL (2.5-4.5); Potassium 4.7 mmol/L (3.5-5.1); Total Bilirubin 0.2 mg/dL (0.2-1.3); Total Protein 6.8 g/dL (6.3-8.2); Uric Acid 6.7 mg/dL (3.5-8.5)
[2017-08-21 17:56] LABS: Creatinine,Urine Random 119.7 mg/dL
[2017-08-21 19:11] LABS: Iron Saturation 13.41 (15.00-50.00)
== END | disposition home or self-care (01) ==
LOC: LABWHC1 12:57
PROVIDERS: ATTEND Internal Medicine
DX: N39.0 Urinary tract infection, site not specified (principal); D64.9 Anemia, unspecified; R80.9 Proteinuria, unspecified; E21.3 Hyperparathyroidism, unspecified; E55.9 Vitamin D deficiency, unspecified; M10.9 Gout, unspecified; G62.9 Polyneuropathy, unspecified; M18.9 Osteoarthritis of first carpometacarpal joint, unspecified
CPT/HCPCS: 36415; 80053; 81003; 82570; 82607; 82728; 83540; 83550; 83735; 83970; 84100; 84156; 84550; 85027

== ENCOUNTER → 2017-12-04 | Outpatient (CLI) | payer MEDICARE, OTHER ==
--- NOTE | 2017-12-04 14:50 | US ---
EXAMINATION TYPE: US scrotum with doppler. Grayscale and color Doppler Duplex imaging performed of t he scrotum. DATE OF EXAM: 12/04/2017 COMPARISON: NONE CLINICAL HISTORY: N50.811 Right Testicular Pain. Burning sensation in testicles per patient. EXAM MEASUREMENTS: TESTICLES: Right Testicle: 5.0 x 3.7 x 2.2 cm Left Testicle: 5.3 x 3.3 x 2.5 cm EPIDIDYMIS HEAD: Right Epididymis: 1.1 cm Left Epididymis: 1.1 cm Doppler performed to assess for testicular vascularity; good bilateral color flow and waveforms are s een. Presence of hydroceles: No Presence of varicoceles: No Intratesticular left-sided simple appearing cyst visualized 0.2 x 0.2 x 0.2 cm marked image 40. Towa rds end of exam comparison views show symmetric blood flow. IMPRESSION: No suspicious finding is seen to account for patient's symptoms.
== END | disposition home or self-care (01) ==
LOC: RADUSWWP 13:36
PROVIDERS: ATTEND Family Medicine
DX: N50.811 Right testicular pain (principal)
CPT/HCPCS: 76870; 93975

== ENCOUNTER → 2018-01-06 | Outpatient (CLI) | payer MEDICARE, OTHER ==
--- NOTE | 2018-01-06 16:53 | MR ---
EXAMINATION TYPE: MR lumbar spine wo con DATE OF EXAM: 01/06/2018 COMPARISON: 01/02/2017 HISTORY: Low back pain CONTRAST: 0 mL intravenous Gadavist. TECHNIQUE: Multiplanar, multisequence images of the lumbar spine were acquired. FINDINGS: Cord terminates at the L1 level. L5-S1: There is narrowing of disc height. Minimal disc bulge has anterior thecal sac contact. Posteri or endplate spurring from L5 is present with anterior thecal sac contact. No spinal canal stenosis is present. There is moderate left and mild right foraminal narrowing L4-L5: There is disc space narrowing. Residual disc bulge has anterior thecal sac contact. Facet hype rtrophy and ligamentum flavum laxity has posterior lateral thecal sac compression. No stenosis is pre sent. Severe left and moderate right foraminal narrowing is present. L3-L4: Minimal disc bulge is present. Facet hypertrophy and mild ligamentum flavum laxity is present. Mild bilateral foraminal narrowing is present. No spinal canal stenosis is present. L2-L3: No significant disc bulge or disc herniation. No spinal canal stenosis. No foraminal stenosi s. Facet hypertrophy is present.. L1-L2: No significant disc bulge or disc herniation. No spinal canal stenosis. No foraminal stenosi s. T12-L1: No significant disc bulge or disc herniation. No spinal canal stenosis. No foraminal stenos is. Exam appears stable from the comparison study. IMPRESSION: 1. Mild disc bulging lower lumbar spine. No stenosis is present. 2. There is severe foraminal stenosis L5-S1 with more moderate foraminal stenosis L3-4 L4-5 secondary to disc bulging and facet hypertrophy. 3. Posterior lateral thecal sac compression L4-5 secondary to facet hypertrophy and ligamentum flavum laxity. 4. Exam is essentially stable from the comparison study.
== END | disposition home or self-care (01) ==
LOC: RADMRIMAIN 10:03
PROVIDERS: ATTEND Psychiatry & Neurology Neurology
DX: M99.73 Connective tissue and disc stenosis of intervertebral foramina of lumbar region (principal); M51.26 Other intervertebral disc displacement, lumbar region; M46.96 Unspecified inflammatory spondylopathy, lumbar region
CPT/HCPCS: 72148

== ENCOUNTER → 2018-06-18 | Outpatient (CLI) | payer MEDICARE, OTHER ==
[2018-06-18 11:27] LABS: Basophils % (A) 1 %; Eosinophils # (A) 0.1 k/uL (0-0.7); Eosinophils % (A) 4 %; HCT 45.8 % (39.0-53.0); HGB 14.7 gm/dL (13.0-17.5); Lymphocytes # (A) 1.1 k/uL (1.0-4.8); Lymphocytes % (A) 36 %; MCH 31.4 pg (25.0-35.0); MCHC 32.2 g/dL (31.0-37.0); MCV 97.6 fL (80.0-100.0); Mean Platelet Volume 6.8; Monocytes # (A) 0.3 k/uL (0-1.0); Monocytes % (A) 9 %; Neutrophils # (A) 1.5 k/uL (1.3-7.7); Neutrophils % (A) 47 %; Platelet Count 199 k/uL (150-450); RBC 4.69 m/uL (4.30-5.90); RDW 13.5 % (11.5-15.5); WBC 3.1 k/uL (3.8-10.6)
--- NOTE | 2018-06-18 12:47 | CT ---
EXAMINATION TYPE: CT chest wo con DATE OF EXAM: 06/18/2018 COMPARISON: CT chest May 29, [address] September 07, 2016. HISTORY: Multiple nodules. COPD. CT DLP: 277.3 mGycm. Automated Exposure Control for Dose Reduction was Utilized. TECHNIQUE: CT scan of the thorax is performed without IV contrast. FINDINGS: LUNGS: Moderate underlying emphysematous change is redemonstrated. No pleural effusion or pneumothora x is noted. Tracheobronchial tree is patent There is stable 5 mm nodule anterior superior right lower lobe axial image 39. There is stable 9 x 5 mm elongated nodule right middle lobe axial image 42 redemonstrated. There is stable 8 x 5 mm subpleu ral anterolateral nodule right middle lobe on axial image 48. 3 mm smaller nodules periphery right lo wer lobe axial image 53 and 56 are unchanged from prior studies. No new right-sided nodules or masses are clearly seen. There is stable 7 x 4 mm lateral left basilar nodule axial image 59. There is stable calcified 5 mm n odule lateral left lower lobe axial image 53. Linear scarring anteriorly lingula near axial image 49 and centrally left lower lobe are unchanged. Subpleural 4 mm nodules left lower lobe axial images 46 and 45 are unchanged from prior studies.. There is stable 4 mm elongated nodule along the left lung f issure axial image 36. No new greater than 4 mm parenchymal nodules or masses are identified. MEDIASTINUM: Lack of IV contrast is noted to limit evaluation for mediastinal and especially hilar ad enopathy. There are no definitive greater than 1 cm noncalcified hilar or mediastinal lymph nodes. Prominent calcified left hilar lymph nodes are redemonstrated. No cardiomegaly or pericardial effusio n is seen. There is moderate to severe coronary artery calcification again seen. Mild to moderate padma cified plaque in aortic arch is redemonstrated. OTHER: Calcifications throughout the spleen are again seen. Slight S-shaped scoliotic curvature to th e spine is redemonstrated. IMPRESSION: Overall stable findings, some scattered stable bilateral nodules back through September 07 017 almost certainly postinflammatory in etiology. Evidence of old granulomatous disease. Moderate em physematous change without acute pulmonary process. No significant change from prior CTs.
[2018-06-20 13:09] LABS: Alt. alternata IgE Class CLASS 0; Alternaria alternata IgE <0.35 kU/L (<0.35); Asperg. fumagatus IgE <0.35 kU/L (<0.35); Asperg. fumagatus IgE Class CLASS 0; Birch(Com.Silvr) IgE <0.35 kU/L (<0.35); Birch(Com.Silvr) IgE Class CLASS 0; Cat Epith & Dander IgE <0.35 kU/L (<0.35); Cat Epith & Dander IgE Class CLASS 0; Clad herbarum IgE <0.35 kU/L (<0.35); Cockroach IgE 0.65 kU/L (<0.35); Cottonwood IgE <0.35 kU/L (<0.35); Dermato. farinae IgE 1.53 kU/L (<0.35); Dermato. farinae IgE Class CLASS II; Dog Dander IgE <0.35 kU/L (<0.35); Elm IgE <0.35 kU/L (<0.35); Maple (Box Elder) IgE <0.35 kU/L (<0.35); Maple (Box Elder) IgE Class CLASS 0; Mountain Cedar IgE <0.35 kU/L (<0.35); Mountain Cedar IgE Class CLASS 0; Mouse Urine IgE Class CLASS 0; Nettle IgE <0.35 kU/L (<0.35); Nettle IgE Class CLASS 0; Oak IgE <0.35 kU/L (<0.35); Penicillium notatum IgE Class CLASS 0; Rough Marshelder IgE <0.35 kU/L (<0.35); Rough Marshelder IgE Class CLASS 0; Timothy Grass IgE 0.98 kU/L (<0.35); White Ash IgE Class CLASS 0
[2018-06-20 13:54] LABS: Alpha 1 Anti-Trypsin 131 mg/dL (90 - 200)
[2018-06-25 12:48] LABS: Alternaria Alternata IgG 5.4 mcg/mL (< 13.6); Aspergillus fumigatus IgG Not detected (Not detected); Aureobasidium pullulans IgG 5.4 mcg/mL (< 13.6); Cladosporium herbarium IgG 11.3 mcg/mL (< 14.7); Saccaharomospora viridis Not detected (Not detected); Saccaharopoly. rectivirgula Not detected (Not detected)
== END | disposition home or self-care (01) ==
LOC: RADCTMAIN 10:49
PROVIDERS: ATTEND Internal Medicine Pulmonary Disease
DX: R91.8 Other nonspecific abnormal finding of lung field (principal); J43.9 Emphysema, unspecified; J44.9 Chronic obstructive pulmonary disease, unspecified; J45.909 Unspecified asthma, uncomplicated
CPT/HCPCS: 36415; 71250; 82103; 82104; 82785; 85025; 86001; 86003; 86606; 86609

== ENCOUNTER 2018-06-30 18:01 | Emergency (ER) | payer MEDICARE, OTHER ==
[2018-06-30 18:07] VITALS: RESP 18
[2018-06-30] MEDS ORDERED: SODIUM CHLORIDE 0.9% 1,000 ML IV STA (18:44)
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
[2018-06-30 19:28] LABS: ALT 65 U/L (21-72); AST 108 U/L (17-59); Albumin 4.5 g/dL (3.5-5.0); Alkaline Phosphatase 131 U/L (38-126); Amylase 57 U/L (30-110); Anion Gap 10 mmol/L; Blood Urea Nitrogen 10 mg/dL (9-20); Calcium 8.8 mg/dL (8.4-10.2); Carbon Dioxide 21 mmol/L (22-30); Chloride 110 mmol/L (98-107); Glucose 95 mg/dL (74-99); Lipase 113 U/L (23-300); Potassium 4.4 mmol/L (3.5-5.1); Sodium 141 mmol/L (137-145); Total Bilirubin 0.5 mg/dL (0.2-1.3); Total Protein 7.9 g/dL (6.3-8.2)
[2018-06-30 19:38] LABS: Partial Thromboplastin Time 26.2 sec (22.0-30.0); Prothrombin Time 10.3 sec (9.0-12.0)
[2018-06-30 19:41] LABS: HCT 45.7 % (39.0-53.0); HGB 14.9 gm/dL (13.0-17.5); MCH 31.2 pg (25.0-35.0); MCHC 32.6 g/dL (31.0-37.0); MCV 95.7 fL (80.0-100.0); Mean Platelet Volume 6.7; Platelet Count 209 k/uL (150-450); RBC 4.77 m/uL (4.30-5.90); RDW 13.6 % (11.5-15.5); WBC 2.9 k/uL (3.8-10.6)
[2018-06-30 19:45] LABS: Creatine Kinase MB 7.4 ng/mL (0.0-2.4); Troponin I 0.013 ng/mL (0.000-0.034)
--- NOTE | 2018-06-30 20:04 | XR ---
EXAMINATION: XR chest 3V DATE AND TIME: 06/30/2018 7:48 PM CLINICAL INDICATION: PHH; difficulty breathing TECHNIQUE: Lateral and 2 frontal views COMPARISON: None FINDINGS: The lungs are clear. The pleural spaces are negative. The cardiac silhouette is not enlarged. The remainder of the mediastinal silhouette is unremarkable. The skeletal structures and soft tissues are negative for acute findings. IMPRESSION: NO ACUTE PROCESS.
[2018-06-30 20:08] LABS: Lymphocytes # (M) 1.36 k/uL (1.0-4.8); Neutrophils # (M) 1.33 k/uL (1.3-7.7); Neutrophils % (M) 46 %; Nucleated Red Blood Cells 0 /100 WBC (0-0); Total Cells Counted 100
[2018-06-30 21:06] LABS: Appearance,Urine Clear (Clear); Bilirubin,Urine Negative (Negative); Blood,Urine Negative (Negative); Color,Urine Yellow; Glucose,Urine (UA) Negative (Negative); Ketones,Urine Negative (Negative); Leukocyte Esterase,Urine Negative (Negative); Nitrite,Urine Negative (Negative); Protein,Urine Negative (Negative); Urobilinogen,Urine <2.0 mg/dL (<2.0)
[2018-06-30 21:17] LABS: Amphetamine Screen,Urine Not Detected (NotDetected); Barbiturate Screen,Urine Not Detected (NotDetected); Benzodiazepines Screen,Urine Not Detected (NotDetected); Cocaine Screen,Urine Not Detected (NotDetected); Methadone Screen, Urine Not Detected (NotDetected); Opiate Screen,Urine Not Detected (NotDetected); Oxycodone Screen, Urine Not Detected (NotDetected); Phencyclidine Screen,Urine Not Detected (NotDetected); Tricyclic Antidepressant,Urine Not Detected (NotDetected); Urn Cannabinoid Scrn Not Detected (NotDetected)
[2018-07-01] MEDS ORDERED: HYDROcodone/APAP 5-325MG 1 EACH TAB PO STA (00:47)
[2018-07-01 01:05] VITALS: BP 143/88; PULSE 78; TEMP 98.7
== END 2018-07-01 01:05 | disposition home or self-care (01) ==
LOC: EC 18:01
DX: F31.30 Bipolar disorder, current episode depressed, mild or moderate severity, unspecified (principal); G89.29 Other chronic pain; M54.9 Dorsalgia, unspecified; R06.02 Shortness of breath; I49.3 Ventricular premature depolarization; R00.0 Tachycardia, unspecified; R06.82 Tachypnea, not elsewhere classified; R45.851 Suicidal ideations; M79.604 Pain in right leg; R07.9 Chest pain, unspecified; I10 Essential (primary) hypertension; F17.200 Nicotine dependence, unspecified, uncomplicated; Z88.0 Allergy status to penicillin; Z79.899 Other long term (current) drug therapy; Z72.89 Other problems related to lifestyle
CPT/HCPCS: 36415; 71046; 80053; 80306; 81003; 82150; 82550; 82553; 83605; 83690; 84484; 85025; 85610; 85730; 87040; 93005; 96360; 99285

== ENCOUNTER → 2018-09-02 | Outpatient (CLI) | payer MEDICARE, OTHER ==
--- NOTE | 2018-09-02 12:05 | US ---
EXAMINATION TYPE: US prostate transrectal DATE OF EXAM: 09/02/2018 COMPARISON: NONE CLINICAL HISTORY: R97.20 Elevated PSA. This examination was performed using the transrectal probe. EXAM MEASUREMENTS: Gland Size: 5.5 x 2.7 x 4.5cm Volume: 35.3 Predicted PSA: 4.2 Actual PSA (if available):4.1 12/06/17 No suspicious lesions are seen of the prostate gland. Examination is limited. Seminal vesicles are sy mmetric. Difficult to insert probe. There is a masslike area anterior rectal wall sitting in between the rectu m and the prostate gland. While this could reflect spasm underlying mass is not excluded. IMPRESSION: 1. Difficult to insert probe. There is a masslike area anterior rectal wall sitting in between the re ctum and the prostate gland. While this could reflect spasm underlying mass is not excluded. 2. No distinct prostatic lesion identified at this time. Predicted PSA = volume x 0.12 ng/ml Calculated Volume = 0.5236 x L x W x H
== END | disposition home or self-care (01) ==
LOC: RADUSMAIN 08:45
PROVIDERS: ATTEND Urology
DX: K62.89 Other specified diseases of anus and rectum (principal); N42.89 Other specified disorders of prostate; Z88.0 Allergy status to penicillin
CPT/HCPCS: 76872

== ENCOUNTER 2018-09-30 11:20 | Observation (INO) | payer MEDICARE, OTHER ==
[2018-09-30 11:28] VITALS: RESP 18
[2018-09-30] MEDS ORDERED: IBUPROFEN 800 MG TAB PO STA (11:55)
[2018-09-30] MEDS ORDERED: HYDROcodone/APAP 5-325MG 1 EACH TAB PO STA (11:55)
--- NOTE | 2018-09-30 12:44 | CT ---
EXAMINATION TYPE: CT abdomen pelvis wo con DATE OF EXAM: 09/30/2018 COMPARISON: None HISTORY: 68-year-old male Low back pain radiating down legs CT DLP: 456.6 mGycm. Automated exposure control for dose reduction was used. TECHNIQUE: Contiguous axial scanning of the abdomen and pelvis without IV contrast. Coronal and sagit doc reconstructions performed. FINDINGS: Heart normal size without pericardial effusion. Lower descending thoracic aorta mildly aneurysmal 3.0 cm. Noncontrast appearance of the liver, gallbladder, adrenal glands, kidneys, and pancreas show no gross abnormality. A few calcified granulomas in the glenoid. No dilated small bowel, free fluid, or free air. Normal appendix. Scattered mild stool. Chronic inflammatory change seen. Mild circumferential bladder wall thickening. Prostate gland is enlarged at 4.9 cm wide. No abnormal fluid collection in the pelvis or pelvic lymphadenopathy seen. Bones: Degenerative changes at the hips. Some degenerative bony sclerosis at the SI joints. Advanced degenerative disc disease at L5-S1 and moderate at L4-L5. 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 Changes result in moderate neural foraminal stenosis on the right at L4-L5, moderate to severe on the left, and moderate to severe left greater than right neura l foraminal stenosis at L5-S1. IMPRESSION: 1. Mild circumferential bladder wall thickening could represent chronic bladder wall hypertrophy or cystitis. Prostate gland mildly enlarged at 4.9 cm wide. 2. Moderate to advanced degenerative changes at L4-L5 and L5-S1. Vertebral moderate to severe neurof oraminal stenoses at these levels, left greater than right. Baastrup's disease.
[2018-09-30] MEDS ORDERED: SODIUM CHLORIDE 0.9% 1,000 ML IV STA (12:51)
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
[2018-09-30 13:35] LABS: ALT 52 U/L (21-72); AST 47 U/L (17-59); Albumin 3.9 g/dL (3.5-5.0); Alkaline Phosphatase 104 U/L (38-126); Anion Gap 6 mmol/L; Blood Urea Nitrogen 8 mg/dL (9-20); Carbon Dioxide 24 mmol/L (22-30); Chloride 108 mmol/L (98-107); Glucose 88 mg/dL (74-99); Lipase 157 U/L (23-300); Magnesium 2.2 mg/dL (1.6-2.3); Potassium 4.2 mmol/L (3.5-5.1); Sodium 138 mmol/L (137-145); Total Bilirubin 0.5 mg/dL (0.2-1.3); Total Protein 6.7 g/dL (6.3-8.2)
--- NOTE | 2018-09-30 13:40 | XR ---
EXAMINATION TYPE: XR chest 2V DATE OF EXAM: 09/30/2018 COMPARISON: 06/30/2018 HISTORY: 68-year-old male chest pain TECHNIQUE: AP and lateral views FINDINGS: Heart normal size. Aorta and pulmonary vasculature are within normal limits. Hyperinflation with rela tive upper lung lucencies. Calcified left infrahilar lymph nodes from prior granulomatous disease. No consolidation or pleural effusion. IMPRESSION: COPD and prior granulomatous disease. No acute cardiopulmonary process.
[2018-09-30 13:42] LABS: HCT 42.4 % (39.0-53.0); HGB 13.5 gm/dL (13.0-17.5); MCH 30.5 pg (25.0-35.0); MCHC 31.9 g/dL (31.0-37.0); MCV 95.5 fL (80.0-100.0); Mean Platelet Volume 7.4; Platelet Count 230 k/uL (150-450); RBC 4.44 m/uL (4.30-5.90); RDW 14.4 % (11.5-15.5); WBC 2.6 k/uL (3.8-10.6)
[2018-09-30 13:47] LABS: D-Dimer 0.59 mg/L FEU (<0.60); INR 0.9 (<1.2); Partial Thromboplastin Time 26.2 sec (22.0-30.0); Prothrombin Time 10.1 sec (9.0-12.0)
[2018-09-30 14:25] LABS: Eosinophils # (M) 0.03 k/uL (0-0.7); Lymphocytes # (M) 0.99 k/uL (1.0-4.8); Monocytes # (M) 0.42 k/uL (0-1.0); Neutrophils # (M) 1.17 k/uL (1.3-7.7); Neutrophils % (M) 45 %; Nucleated Red Blood Cells 0 /100 WBC (0-0); Total Cells Counted 100
[2018-09-30 14:51] LABS: Appearance,Urine Clear (Clear); Bilirubin,Urine Negative (Negative); Blood,Urine Negative (Negative); Color,Urine Yellow; Glucose,Urine (UA) Negative (Negative); Ketones,Urine Trace (Negative); Leukocyte Esterase,Urine Negative (Negative); Nitrite,Urine Negative (Negative); PH, Urine 5.5 (5.0-8.0); Protein,Urine Trace (Negative); Specific Gravity,Urine 1.028 (1.001-1.035)
[2018-09-30] MEDS ORDERED: HEPARIN SODIUM,PORCINE 5,000 UNIT/ML 1 ML VIAL IV ONE (15:21)
[2018-09-30] MEDS ORDERED: NITROGLYCERIN SL TABS 0.4 MG TAB SUBLINGUAL PRN (15:21)
[2018-09-30] MEDS ORDERED: ASPIRIN 81 MG PO STA (15:28)
[2018-09-30] MEDS ORDERED: HEPARIN SODIUM,PORCINE 5,000 UNIT/ML 1 ML VIAL IV PRN (15:28)
[2018-09-30] MEDS ORDERED: HEPARIN SOD,PORK IN 0.45% NACL 25,000 UNIT in 0.45% NACL 1 250ML.BAG IV SCH (15:30)
[2018-09-30] MEDS ORDERED: PNEUMOCOCCAL VACC-PNEUMOVAX 23 25 MCG/0.5 ML VIAL IM ONE (15:54)
[2018-09-30 16:44] VITALS: BP 144/90; PULSE 75; TEMP 98
[2018-10-01] MEDS ORDERED: ASPIRIN 325 MG TAB PO SCH (09:00)
[2018-10-01] MEDS ORDERED: ATORVASTATIN 80 MG TAB PO SCH (09:00)
== END 2018-09-30 16:31 | disposition home or self-care (01) ==
LOC: EC 11:20 → 1SOBS 15:35
PROVIDERS: ADMIT Hospitalist; ATTEND Hospitalist
DX: R07.89 Other chest pain (principal); N39.0 Urinary tract infection, site not specified; G89.29 Other chronic pain; M54.5 Low back pain; M48.26 Kissing spine, lumbar region; M48.061 Spinal stenosis, lumbar region without neurogenic claudication; M48.07 Spinal stenosis, lumbosacral region; M51.36 Other intervertebral disc degeneration, lumbar region; M51.37 Other intervertebral disc degeneration, lumbosacral region; N40.0 Benign prostatic hyperplasia without lower urinary tract symptoms; E78.00 Pure hypercholesterolemia, unspecified; M10.9 Gout, unspecified; I10 Essential (primary) hypertension; J44.9 Chronic obstructive pulmonary disease, unspecified; J84.10 Pulmonary fibrosis, unspecified; F31.9 Bipolar disorder, unspecified; F17.200 Nicotine dependence, unspecified, uncomplicated; Z79.899 Other long term (current) drug therapy; Z88.0 Allergy status to penicillin; Z83.3 Family history of diabetes mellitus; Z80.9 Family history of malignant neoplasm, unspecified; Z53.21 Procedure and treatment not carried out due to patient leaving prior to being seen by health care provider
CPT/HCPCS: 96360; 99291; 36415; 93005; 85379; 83880; 80053; 83690; 83735; 84484; 85025; 85610; 85730; 81003; 71046; 74176; G0378; J0696

== ENCOUNTER 2018-10-03 07:24 | Day surgery (SDC) | payer MEDICARE, OTHER ==
[2018-10-03] MEDS ORDERED: CIPROFLOXACIN HCL 500 MG TAB PO STA (08:31)
[2018-10-03 08:38] VITALS: TEMP 97.8
[2018-10-03] MEDS ORDERED: LIDOCAINE URO-JET JELLY 2% 5 ML KIT URETHRAL ONE (09:52)
[2018-10-03 11:10] VITALS: BP 138/82; PULSE 86; RESP 16
--- NOTE | 2018-10-03 12:57 | US ---
Ultrasound-guided transrectal biopsy of the prostate gland. HISTORY: Elevated PSA. Informed consent was obtained and all the patient's questions were answered. Topical Xylocaine gel w as applied to the probe. The prostate gland was localized sonographically and 12 total samples were obtained with 2 samples obtained from each site. An 18-gauge biopsy device was utilized. Sites incl ude right base, left base, right mid gland, left mid gland, right apex and left apex. Samples were s ent to pathology further evaluation. The patient was monitored following the biopsy for approximatel y one hour. At the time of discharge patient's urine was clear and vitals were stable. IMPRESSION: Successful ultrasound guided core biopsy of the prostate gland. Pathology results are pe nding.
== END 2018-10-03 11:05 | disposition home or self-care (01) ==
LOC: RADPROMAIN 07:24
PROVIDERS: ATTEND Urology
DX: C61 Malignant neoplasm of prostate (principal); Z88.0 Allergy status to penicillin
CPT/HCPCS: 55700; 76942; 88305

== ENCOUNTER → 2018-10-07 | Outpatient (CLI) | payer MEDICARE, OTHER ==
--- NOTE | 2018-10-07 22:51 | MR ---
EXAMINATION TYPE: MR lumbar spine wo con DATE OF EXAM: 10/07/2018 COMPARISON: MRI lumbar spine January 06, 2018 HISTORY: LBP, RLE radic x 10 yrs TECHNIQUE: Multiplanar, multisequence imaging of the lumbar spine is performed without IV contrast. FINDINGS: Sagittal images of the lumbar spine show vertebral body heights and alignment to remain sat isfactory. Multilevel disc desiccation is redemonstrated. There is persistent mild to moderate disc s pace narrowing with heterogeneous Modic type I endplate changes most prominent left L4-L5 level. Ther e is moderate to advanced disc space narrowing with vacuum disc phenomenon at L5-S1 level. The conus medullaris is stable in position and signal ending at L1 level. Axial images show the T12-L1 level to remain within normal limits. Axial images at the L1-L2 and L2-L3 level show mild facet arthropathy but spinal canal is preserved a nd bilateral neural foramina are patent. No significant change from prior. Axial images at the L3-L4 level show [id number] facet degenerative changes and ligamentum flavu m hypertrophy with some effacement of the posterior lateral thecal sac. There is mild broad disc bulg e mildly effacing the anterior thecal sac and causing mild to moderate bilateral inferior neural fora carrie narrowing. No significant change from prior. Axial images at the L4-L5 level shows moderate broad-based disc bulge effacing anterior thecal sac wi th moderate facet degenerative changes and ligamentum flavum hypertrophy effacing posterior lateral t hecal sac. There is moderate to severe left-sided inferior neural foraminal narrowing and mild right- sided neural foraminal narrowing redemonstrated. No significant change from prior. Axial images at the L5-S1 level show moderate to advanced facet degenerative changes with moderate br oad disc bulge minimally effacing the anterior thecal sac. There is moderate to severe left greater t luther right bilateral neuroforaminal narrowing redemonstrated. No significant change from prior. No dane picious incidental retroperitoneal findings are seen. IMPRESSION: Multilevel degenerative changes most prominent at L4-L5 and L5-S1 level as detailed above . No significant change or progression from prior MRI..
== END ==
LOC: RADMRIMAIN 15:42
PROVIDERS: ATTEND Psychiatry & Neurology Neurology
DX: M47.816 Spondylosis without myelopathy or radiculopathy, lumbar region (principal); M47.817 Spondylosis without myelopathy or radiculopathy, lumbosacral region; Z88.0 Allergy status to penicillin
CPT/HCPCS: 72148

== ENCOUNTER → 2018-11-12 | Outpatient (CLI) | payer MEDICARE, OTHER ==
[2018-11-12 10:11] LABS: Blood Urea Nitrogen 6 mg/dL (9-20)
--- NOTE | 2018-11-12 11:56 | CT ---
EXAMINATION TYPE: CT pelvis w con DATE OF EXAM: 11/12/2018 COMPARISON: CT abdomen and pelvis September 30, 2018 HISTORY: Prostate cancer, history of partial prostatectomy per patient. CT DLP: 586.9 mGycm Automated exposure control for dose reduction was used. CONTRAST: Performed with oral and with IV Contrast, patient injected with 100 mL of Isovue 300. FINDINGS: Visualized bowel shows no suspicious dilatation. Oral contrast reaches level of rectum. Prostate gland remains upper limits of normal in size. No suspicious adjacent adenopathy is seen. Uri nary bladder is felt within normal limits. There is vacuum disc phenomenon with endplate sclerosis L4-L5 level. There is moderate to advanced di sc space narrowing with vacuum disc phenomenon L5-S1 level. There is facet arthropathy in the lower l umbar spine. IMPRESSION: NO SUSPICIOUS NEW MASS OR ADENOPATHY IS PRESENT.
--- NOTE | 2018-11-12 14:17 | NM ---
EXAMINATION TYPE: NM bone scan whole body DATE OF EXAM: 11/12/2018 COMPARISON: CT abdomen and pelvis September 30, 2018 HISTORY: Prostate cancer. Delayed whole-body scanning was performed following the injection of 23 mCi Tc 99m MDP. Images acqui red 3.5 hours post injection. Whole body images in anterior posterior projection are obtained. An ini tial spot images of the abdomen and pelvis are acquired in several projections. FINDINGS: There is no suspicious scintigraphic radiotracer uptake to suggest metastatic disease to the bone. Mi ld increase uptake lower lumbar levels corresponds to areas of increased degenerative change on recen t CT. Mild to moderate uptake in both knee joints corresponds to degenerative change at this level. U rine leak is noted on current study. IMPRESSION: No scintigraphic evidence of metastatic disease to the bone.
== END | disposition home or self-care (01) ==
LOC: RADNMMAIN 09:13
PROVIDERS: ATTEND Urology
DX: C61 Malignant neoplasm of prostate (principal); Z88.0 Allergy status to penicillin
CPT/HCPCS: 82565; 84520; 72193; 36415; 78306; A9503; Q9967 ×2

== ENCOUNTER → 2018-12-01 | Outpatient (CLI) | payer MEDICARE, OTHER | END | disposition home or self-care (01) | LOC: LABWHC1 12:13 | PROVIDERS: ATTEND Radiology Radiation Oncology | DX: C61 Malignant neoplasm of prostate (principal) | CPT/HCPCS: 36415; 84153 ==